=== PATIENT | female | born 1985 | race Two or more races ===

== ENCOUNTER 2018-07-13 09:53 | Outpatient (CLI) | payer OTHER | END 2018-07-13 10:03 | disposition home or self-care (01) | LOC: RAD 501 09:53 | DX: J18.8 Other pneumonia, unspecified organism (principal) ==

== ENCOUNTER 2021-12-20 08:39 | Outpatient (CLI) | payer OTHER | END 2021-12-20 08:41 | disposition home or self-care (01) | LOC: SONOGRAMA 08:39 | PROVIDERS: ATTEND Pathology Anatomic Pathology & Clinical Pathology | DX: R59.0 Localized enlarged lymph nodes (principal) ==